=== PATIENT | male | born 1990 | race Caucasian/White ===

== ENCOUNTER 2022-02-13 19:57 | Emergency (ER) | payer BC ==
[~2022-02-13] VITALS: Ht 188 cm; Wt 70.3 kg
[2022-02-13] MEDS ORDERED: ESCITALOPRAM OXA5 MG PO (20:37)
== END 2022-02-13 21:59 | disposition home or self-care (01) ==
LOC: ED 19:57
PROC: 0HQDXZZ Repair Right Lower Arm Skin, External Approach (ICD-10-PCS; principal; 2022-02-13)
DX: S51.811A Laceration without foreign body of right forearm, initial encounter (principal); Z23 Encounter for immunization; W25.XXXA Contact with sharp glass, initial encounter
CPT/HCPCS: 12002; 73090; 90471; 90715; 99283-25